=== PATIENT | female | born 1965 | race Caucasian/White ===

== ENCOUNTER 2019-10-10 09:02 | Outpatient (CLI) | payer MEDICARE, MEDICAID, SELFPAY ==
--- NOTE | 2019-10-10 09:30 | CT_ITS ---
WS: [id number] CT LUMBAR SPINE TECHNIQUE: Noncontrast CT of the lumbar spine with coronal and sagittal reformatted images. CLINICAL INFORMATION: S/P lumbar fusion COMPARISON: CT June 13, 2019 DLP: 2352.[address] scans at [facility] use at least one of these dose optimization techniques: automat ed exposure control; mA and/or kV adjustment per patient size (includes targeted exams where dose is matched to clinical indication); or iterative reconstruction. FINDINGS: Normal lumbar alignment. No acute compression. Pedicle screw fixation L4-5 with interconnecting rods. No evidence of hardware loosening. Hardware appears stable from previous. Laminectomy defects L4-5. L1-L2: Normal. L2-L3: No significant disc bulging. Mild facet arthropathy. Spinal canal and foramen are patent. L3-L4: Tiny left proximal foraminal protrusion. Mild left and no significant right foraminal narrowin g. Spinal canal is patent. Mild facet arthropathy. L4-L5: Postoperative laminectomy defects. Spinal canal has been decompressed. Moderate facet arthropa thy. Mild left and no significant right foraminal narrowing. Slight narrowing of the left subarticula r recess. L5-S1: Disc bulging with osteophytic ridging. Moderate right foraminal narrowing slightly impinges th e exiting right L5 nerve root. Left foramen is patent. Visualized pelvic bony structures: Normal. Paravertebral soft tissues: Normal. CT/CT lumbar spine wo con* [id number] IMPRESSION: 1. Postoperative changes L4-5 pedicle screw fixation. Hardware appears stable. No evidence of loosening. L4-5 laminectomy defects. 2. Moderate right L5-S1 bony foraminal narrowing with slight impingement on th e exiting right L5 nerve root due to disc osteophyte complex. 3. Slight narrowing of the left L4-5 subarticular recess with mild left L4-5 f oraminal narrowing.
== END 2019-10-10 09:03 | disposition home or self-care (01) ==
LOC: RAD 09:09
PROVIDERS: Family Provider Family Medicine; PCP Family Medicine; Visit Provider Specialist
DX: Z98.1 Arthrodesis status (principal); M25.78 Osteophyte, vertebrae
CPT/HCPCS: 72131

== ENCOUNTER → 2019-11-21 14:46 | Outpatient (BNVA) | payer MEDICARE, MEDICAID, SELFPAY | PROVIDERS: Family Provider Family Medicine; PCP Family Medicine; Visit Provider Nurse Practitioner | DX: F43.12 Post-traumatic stress disorder, chronic (principal) | CPT/HCPCS: 99214 ==

== ENCOUNTER → 2020-01-02 07:41 | Outpatient (BNVA) | payer MEDICARE, MEDICAID, SELFPAY | PROVIDERS: Family Provider Family Medicine; PCP Family Medicine; Visit Provider Nurse Practitioner | DX: E28.39 Other primary ovarian failure (principal); F43.12 Post-traumatic stress disorder, chronic | CPT/HCPCS: 99213 ==

== ENCOUNTER 2020-02-11 14:58 | Outpatient (CLI) | payer MEDICARE, MEDICAID, SELFPAY ==
--- NOTE | 2020-02-11 15:30 | CT_ITS ---
WS: [id number] CT LUMBAR SPINE TECHNIQUE: Noncontrast CT of the lumbar spine with coronal and sagittal reformatted images. CLINICAL INFORMATION: Post Op Lumbar Fusion COMPARISON: None. DLP: 1775.[address] scans at [facility] use at least one of these dose optimization techniques: automat ed exposure control; mA and/or kV adjustment per patient size (includes targeted exams where dose is matched to clinical indication); or iterative reconstruction. FINDINGS: Normal lumbar alignment. No acute appearing compression fractures. Pedicle screw fixation L4-5 with i nterconnecting rods. No evidence of hardware loosening. Hardware appears stable from October 2019. La minectomy defects L4-5. L1-L2: Normal. L2-L3: No significant disc bulging. Mild facet arthropathy. Spinal canal and foramen are patent. L3-L4: Tiny left proximal foraminal protrusion. Mild left and no significant right foraminal narrowin g. Spinal canal is patent. Mild facet arthropathy. L4-L5: Postoperative laminectomy defects. Spinal canal has been decompressed. Moderate facet arthropa thy. Mild left and no significant right foraminal narrowing. Slight narrowing of the left subarticula r recess. L5-S1: Disc bulging with osteophytic ridging. Moderate right foraminal narrowing slightly impinges th e exiting right L5 nerve root. Left foramen is patent. Visualized pelvic bony structures: Normal. Paravertebral soft tissues: Normal. Cholecystectomy clips. CT/CT lumbar spine wo con* [id number] IMPRESSION: 1. Prior postoperative changes L4-5 pedicle screw fixation with dorsolateral b one graft material. Hardware appears stable from October 2019. No evidence of h ardware loosening. 2. L4-5 laminectomy defects. 3. Moderate right L5-S1 bony foraminal narrowing with slight impingement on th e exiting right L5 nerve root due to disc osteophyte complex unchanged. 4. Slight narrowing of the left L4-5 subarticular recess with mild left L4-5 f oraminal narrowing. 5. No significant interval changes since October 10, 2019.
== END 2020-02-11 14:59 | disposition home or self-care (01) ==
LOC: RADWPI 15:03
PROVIDERS: Family Provider Family Medicine; PCP Family Medicine; Visit Provider Specialist
DX: Z98.1 Arthrodesis status (principal); M48.07 Spinal stenosis, lumbosacral region
CPT/HCPCS: 72131

== ENCOUNTER → 2020-04-09 07:32 | Outpatient (BNVA) | payer MEDICARE, MEDICAID, SELFPAY | PROVIDERS: Family Provider Family Medicine; PCP Family Medicine; Visit Provider Nurse Practitioner | DX: F43.12 Post-traumatic stress disorder, chronic (principal) | CPT/HCPCS: 99213 ==

== ENCOUNTER → 2020-07-07 16:30 | Outpatient (BNVA) | payer MEDICARE, MEDICAID, SELFPAY | PROVIDERS: Family Provider Family Medicine; PCP Family Medicine; Visit Provider Obstetrics & Gynecology | DX: C56.9 Malignant neoplasm of unspecified ovary (principal); E78.5 Hyperlipidemia, unspecified; E03.9 Hypothyroidism, unspecified | CPT/HCPCS: 80061; 82951; 83036; 84443; 86304 ==

== ENCOUNTER → 2020-07-08 08:23 | Outpatient (BNVA) | payer MEDICARE, MEDICAID, SELFPAY | PROVIDERS: Family Provider Family Medicine; PCP Family Medicine; Visit Provider Nurse Practitioner | DX: F43.12 Post-traumatic stress disorder, chronic (principal) | CPT/HCPCS: 99214 ==

== ENCOUNTER 2020-08-06 11:20 | Outpatient (CLI) | payer MEDICARE, MEDICAID, SELFPAY ==
--- NOTE | 2020-08-06 11:45 | USCV_ITS ---
Iliana Ochoa Age: 54 Gender: F : 1965 Exam Date: 08/06/2020 11:47 Ordering Phys: Marc Velazquez MD Technologist: Casie Garcia [place] [facility] [place]: RIGHT LOWER EXTREMITY PAIN AND SWELLING HISTORY: Lower extremity pain. Lower extremity swelling. PROCEDURES: Venous duplex imaging was performed in only the right lower extremity. The following venous structures were evaluated: common femoral vein, profunda vein, proximal portion of the greater saphenous vein, superficial femoral vein, and the popliteal vein. In addition, the posterior tibial and peroneal trunk were evaluated. FINDINGS: Normal 2-D Doppler and augmentation and compressibility throughout the lower extremity venous structures. Additional imaging through the proximal calf veins also reveals no thrombus. Limited evaluation of the greater saphenous vein is patent with no thrombus. Scanned area of patient concern of right lower leg. ?Edema noted here. CONCLUSIONS No evidence of right lower extremity DVT. Edema right lower leg Rhett Stafford MD (Electronically Signed) Final Date: 06 August 2020 17:13 S
== END 2020-08-06 11:21 | disposition home or self-care (01) ==
PROVIDERS: PCP Family Medicine; Visit Provider Surgery
DX: M79.604 Pain in right leg (principal); M79.89 Other specified soft tissue disorders
CPT/HCPCS: 93971

== ENCOUNTER → 2020-09-19 09:06 | Outpatient (BNVA) | payer MEDICARE, MEDICAID, SELFPAY | PROVIDERS: PCP Family Medicine; Visit Provider Nurse Practitioner | DX: F43.12 Post-traumatic stress disorder, chronic (principal) | CPT/HCPCS: 99213 ==

== ENCOUNTER → 2020-12-12 09:07 | Outpatient (BNVA) | payer MEDICARE, MEDICAID, SELFPAY | PROVIDERS: PCP Family Medicine; Visit Provider Nurse Practitioner | DX: F43.12 Post-traumatic stress disorder, chronic (principal) | CPT/HCPCS: 99214 ==

== ENCOUNTER → 2021-01-27 09:58 | Outpatient (BNVA) | payer MEDICARE, MEDICAID, SELFPAY | PROVIDERS: PCP Family Medicine; Visit Provider Family Medicine | DX: K14.8 Other diseases of tongue (principal); E03.9 Hypothyroidism, unspecified; E11.9 Type 2 diabetes mellitus without complications; E78.2 Mixed hyperlipidemia; F31.9 Bipolar disorder, unspecified; I10 Essential (primary) hypertension; Z68.38 Body mass index [BMI] 38.0-38.9, adult | CPT/HCPCS: 80053; 80061; 80156; 83036; 84443 ==

== ENCOUNTER → 2021-01-29 09:20 | Outpatient (BNVA) | payer MEDICARE, MEDICAID, SELFPAY | PROVIDERS: PCP Family Medicine; Visit Provider Otolaryngology | DX: K14.8 Other diseases of tongue (principal) | CPT/HCPCS: 88305 ==

== ENCOUNTER → 2021-03-03 11:05 | Outpatient (BNVA) | payer MEDICARE, MEDICAID, SELFPAY | PROVIDERS: PCP Family Medicine; Visit Provider Nurse Practitioner Family | DX: Z20.822 Contact with and (suspected) exposure to COVID-19 (principal) | CPT/HCPCS: 87635 ==

== ENCOUNTER → 2021-03-06 09:37 | Outpatient (BNVA) | payer MEDICARE, MEDICAID, SELFPAY | PROVIDERS: PCP Family Medicine; Visit Provider Nurse Practitioner | DX: F43.12 Post-traumatic stress disorder, chronic (principal); F31.9 Bipolar disorder, unspecified | CPT/HCPCS: 99214 ==

== ENCOUNTER → 2021-04-16 11:00 | Outpatient (BNVA) | payer MEDICARE, MEDICAID, SELFPAY | PROVIDERS: PCP Family Medicine; Visit Provider Emergency Medicine | DX: Z20.822 Contact with and (suspected) exposure to COVID-19 (principal) | CPT/HCPCS: 87635 ==

== ENCOUNTER → 2021-06-03 07:16 | Outpatient (BNVA) | payer MEDICARE, MEDICAID, SELFPAY | PROVIDERS: PCP Family Medicine; Visit Provider Nurse Practitioner | DX: F43.12 Post-traumatic stress disorder, chronic (principal); F31.9 Bipolar disorder, unspecified | CPT/HCPCS: 99214 ==

== ENCOUNTER → 2021-10-27 07:25 | Outpatient (BNVA) | payer MEDICARE, MEDICAID, SELFPAY | PROVIDERS: PCP Family Medicine; Visit Provider Nurse Practitioner | DX: F43.12 Post-traumatic stress disorder, chronic (principal) | CPT/HCPCS: 99214 ==

== ENCOUNTER → 2021-12-25 13:12 | Outpatient (BNVA) | payer MEDICARE, MEDICAID, SELFPAY | PROVIDERS: PCP Family Medicine; Visit Provider Nurse Practitioner | DX: F43.12 Post-traumatic stress disorder, chronic (principal) | CPT/HCPCS: 99214 ==

== ENCOUNTER 2022-01-26 15:09 | Emergency (ER) | payer MEDICARE, MEDICAID, SELFPAY ==
[2022-01-26 15:25] VITALS: BP 185/101; PULSE 60; RESP 18; TEMP 37.5; O2SAT 95; BMI 38.9
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
[2022-01-26] MEDS: HYDROcodone-acetaminophen 7.5-325 mg Tablet 1 TAB PO (15:54)
--- NOTE | 2022-01-26 17:12 | PC.NURSE ---
PATIENT LEFT WITHOUT PRESCRIPTION
--- NOTE | 2022-01-27 09:37 | DCPLANNER ---
Addendum entered by Roula Heard 02/03/22 20:10: Patient had a follow up appointment scheduled with ortho - patient did attend appointment. Addendum entered by Roula Heard 01/28/22 09:58: Patient has a follow up appointment scheduled for Tuesday, February 01, 2022 at 8:[address] Parada at ortho. Clinic will call patient with appointment information. Original Note: senior manager asset protection had message to schedule a followup appointment for patient with ortho. senior manager asset protection sent patients information to the front office staff at ortho. Patients information will be printed and reviewed. Clinic will call patient with appointment information.
== END 2022-01-26 17:12 | disposition home or self-care (01) ==
PROVIDERS: Emergency Provider Physician Assistant
DX: S49.92XA Unspecified injury of left shoulder and upper arm, initial encounter (principal); V86.65XA Passenger of 3- or 4- wheeled all-terrain vehicle (ATV) injured in nontraffic accident, initial encounter
CPT/HCPCS: 73030; 73080; 73562; 99283

== ENCOUNTER → 2022-02-01 08:17 | Outpatient (BNVA) | payer MEDICARE, MEDICAID, SELFPAY | PROVIDERS: PCP Family Medicine; Referring Provider Physician Assistant; Visit Provider Specialist | DX: S40.012A Contusion of left shoulder, initial encounter (principal); V86.95XA Unspecified occupant of 3- or 4- wheeled all-terrain vehicle (ATV) injured in nontraffic accident, initial encounter; S49.92XA Unspecified injury of left shoulder and upper arm, initial encounter | CPT/HCPCS: 73030; 99203; 99204 ==

== ENCOUNTER → 2022-02-23 07:14 | Outpatient (BNVA) | payer MEDICARE, MEDICAID, SELFPAY | PROVIDERS: PCP Family Medicine; Visit Provider Nurse Practitioner | DX: F43.12 Post-traumatic stress disorder, chronic (principal) | CPT/HCPCS: 99214 ==

== ENCOUNTER → 2022-02-24 08:36 | Outpatient (BNVA) | payer MEDICARE, MEDICAID, SELFPAY | PROVIDERS: PCP Family Medicine; Visit Provider Specialist | DX: S49.92XD Unspecified injury of left shoulder and upper arm, subsequent encounter (principal); X58.XXXD Exposure to other specified factors, subsequent encounter; M25.512 Pain in left shoulder | CPT/HCPCS: 73030; 99213 ==

== ENCOUNTER → 2022-05-10 08:55 | Outpatient (BNVA) | payer MEDICARE, MEDICAID, SELFPAY | PROVIDERS: PCP Family Medicine; Visit Provider Family Medicine | DX: R79.89 Other specified abnormal findings of blood chemistry (principal); E11.9 Type 2 diabetes mellitus without complications | CPT/HCPCS: 80053; 82977 ==